=== PATIENT | female | born 1965 | race Caucasian/White ===

== ENCOUNTER → 2018-05-15 | Outpatient (CLI) | payer BC ==
[~2018-05-15] MED LIST: BCP; ESCI10
== END | disposition home or self-care (01) ==
LOC: LAB 13:20 → LAB SHORT 13:20
DX: R30.0 Dysuria (principal)
CPT/HCPCS: 87086; 87147

== ENCOUNTER → 2021-02-21 | Outpatient (CLI) | payer OTHER ==
[2021-02-21 09:42] LABS: Source, Urine Clean Catch
[2021-02-21 11:33] LABS: Appearance, Urine Clear (Clear); Bilirubin, Urine Neg (Neg); Blood, Urine Neg (Neg); Color, Urine Yellow (P-Yellow); Glucose Qualitative, Urine 4+ (Neg); Ketones, Urine Neg (Neg); Leukocyte Esterase, Urine Neg (Neg); Nitrite, Urine Neg (Neg); Protein, Urine Neg (Neg); Urobilinogen, Urine NORM (Normal)
== END | disposition home or self-care (01) ==
LOC: LAB 09:42 → LAB SHORT 09:42
PROVIDERS: Internal Medicine
DX: R30.0 Dysuria (principal)
CPT/HCPCS: 81003

== ENCOUNTER 2023-03-12 11:38 | Day surgery (SDC) | payer OTHER ==
[2023-03-12] VITALS (14 sets, daily range): BP systolic 108–160; BP diastolic 66–82
[~2023-03-12] VITALS: Ht 157.5 cm; Wt 84.7 kg
[~2023-03-12 11:38] MED LIST changes: +ESTRADIOL TOP; +Glucotrol5 MG; +PIOG30 PO; +PROG100 PO; +RYBELSUS14 MG PO; +TRIA50 PO; +Vitamin C100 M1 PO
[2023-03-12] MEDS ORDERED: ESTRADIOL42.5 GM VAG (12:11)
--- NOTE | 2023-03-12 18:34 | NUR ---
POST-OP PATIENT TO THE ROOM @[id number]. TAM REMOVED PER ORDERS. VSS, ON 2L NC SATS ABOVE 98%. PATIENT DID AMBULATE TO BATHROOM WITH SBA. VOIDED 100 OUPUT. YESSY PAD WITH SCANT BLOOD. LAP SITES X4 WITH EXOPHIN, C/D/I. COST ESTIMATOR. ABD BINDER ON. IVF RUNNING @TKO. PATIENT REPORTS NAUSEA, PHENERGAN GIVEN. PATIENT IS NOW RESTING ON RA. SATS ABOVE 95%. REPORTS PRESSURE IN LOWER ABD, HEATING PAD IN PLACE. ORIENTED TO ROOM AND CALL LIGHT IN REACH.
[2023-03-13 03:48] VITALS: BP 142/63
--- NOTE | 2023-03-13 04:55 | NUR ---
SHIFT SUMMARY POD 1 TOTAL LAP HYSTERECTOMY c LYSIS OF ADHESIONS. NO ACUTE CHANGES OVERNIGHT. VS WNL FOR PT, A&0 x4. TOLERATING MINIMAL PO INTAKE, PT REPORTS NO NAUSEA OVERNIGHT. AMBULATING & VOIDING INDEPENDENTLY, SCANT PINK TINGED URINE. YESSY PADS c MINIMAL SANGUINEOUS DRAINAGE. LAP SITE x4 C/D/I, UMBILICAL SITE HAS SCANT SANGUINOUES DRAINAGE. PT REOPRTS PAIN TOLERABLE, MEDICATED PER EMAR. ABDOMINAL BINDER IN PLACE. STAYED AT BEDSIDE OVERNIGHT. CALL LIGHT WITHIN REACH, BED IN LOWEST POSITION, WILL REPORT TO DAY RN.
[2023-03-13 05:08] LABS: BASOPHILS ABSOLUTE AUTO 0.02 K/mm3 (0.00-0.23); BASOPHILS PERCENT AUTO 0 % (0-2); EOSINOPHILS PERCENT AUTO 0 % (0-6); Hematocrit 37.8 % (33.0-51.0); Hemoglobin 12.7 g/dL (11.5-16.0); IMMATURE GRAN PERCENT AUTO 1 % (0-1); LYMPHOCYTES ABSOLUTE AUTO 1.29 K/mm3 (0.84-5.20); LYMPHOCYTES PERCENT AUTO 10 % (21-46); MONOCYTES ABSOLUTE AUTO 0.35 K/mm3 (0.16-1.47); MONOCYTES PERCENT AUTO 3 % (4-13); Mean Corpuscular HGB 31.1 pg (26.0-34.0); Mean Corpuscular HGB Conc 33.6 g/dL (31.5-36.5); Mean Corpuscular Volume 93 fL (80-100); NEUTROPHILS ABSOLUTE AUTO 10.61 K/mm3 (1.96-9.15); NEUTROPHILS PERCENT AUTO 86 % (41-73); Platelet Count 369 K/mm3 (150-400); RDW Coefficient Variation 11.9 % (11.7-14.2); RDW Standard Deviation 40.1 fL (35.1-46.3); Red Blood Cell Count 4.08 M/mm3 (3.80-5.20); White Blood Cell Count 12.37 K/mm3 (4.00-11.30)
[2023-03-13 07:04] VITALS: BP 121/71
[2023-03-13] MEDS ORDERED: IBUP400 PO (13:19)
[2023-03-13] MEDS ORDERED: PROM25 PO (13:20)
[2023-03-13] MEDS ORDERED: Percocet 5-3251 EACH PO (13:20)
[2023-03-13] MEDS ORDERED: SIME80CH PO (13:21)
--- NOTE | 2023-03-13 16:00 | NUR ---
DISCHARGE INSTRUCTIONS GIVEN, ALL BELONGINGS TAKEN BY PATIENT SPOUSE. PATIENT SIGNS AND ACKOWLEDGES INSTRUCTIONS AND IV TAKEN OUT.
== END 2023-03-13 14:26 | disposition home or self-care (01) ==
LOC: ORSCMMR 11:38 → ORD 13:00 → ORSCMMR 13:15 → ORD 13:15 → SURS 17:42 → ORSCMMR 03-13 14:26
PROVIDERS: Obstetrics & Gynecology
PROC: 0UT2FZZ Resection of Bilateral Ovaries, Via Natural or Artificial Opening With Percutaneous Endoscopic Assistance (ICD-10-PCS; principal; 2023-03-12 13:15)
PROC: 0UT9FZZ Resection of Uterus, Via Natural or Artificial Opening With Percutaneous Endoscopic Assistance (ICD-10-PCS; principal; 2023-03-12 13:15)
PROC: 0UT7FZZ Resection of Bilateral Fallopian Tubes, Via Natural or Artificial Opening With Percutaneous Endoscopic Assistance (ICD-10-PCS; principal; 2023-03-12 13:15)
DX: N95.0 Postmenopausal bleeding (principal); N80.359 Endometriosis of pelvic sidewall, unspecified side, unspecified depth; N73.6 Female pelvic peritoneal adhesions (postinfective); Q50.5 Embryonic cyst of broad ligament; E11.9 Type 2 diabetes mellitus without complications; Z79.84 Long term (current) use of oral hypoglycemic drugs; Z68.34 Body mass index [BMI] 34.0-34.9, adult; Z79.899 Other long term (current) drug therapy
CPT/HCPCS: 36415; 82947; 85025; 86850; 86900; 86901; 88307; A9270; J0690; J1100; J1650; J1790; J1885; J2250; J2405; J2704; J2765; J3010; J7050; J7120

== ENCOUNTER → 2024-02-22 | Outpatient (CLI) | payer OTHER ==
[~2024-02-22] MED LIST changes: +ESTRADIOL42.5 GM VAG; +IBUP400 PO; +PROM25 PO; +Percocet 5-3251 EACH PO; +SIME80CH PO
[2024-02-22 17:21] LABS: Creatinine, Urine Random 56.6 mg/dL (27.00-270.00)
[2024-02-22 17:24] LABS: Microalb/Creat Ratio UR, Rand 14.17 mg/g (0.000-30.000); Microalbumin, Random Urine 8.02 mg/L (0.000-20.000)
== END ==
LOC: LAB 12:50 → LAB SHORT 12:50
PROVIDERS: Internal Medicine
DX: E11.8 Type 2 diabetes mellitus with unspecified complications (principal); I10 Essential (primary) hypertension
CPT/HCPCS: 82043; 82570